=== PATIENT | male | born 1995 | race African-American/Black ===

== ENCOUNTER 2017-09-12 17:46 | Emergency (ER) | payer OTHER ==
[~2017-09-12] VITALS: Ht 188 cm; Wt 113.4 kg
[~2017-09-12 17:46] MED LIST: Ketorolac 30mg Inj IV ONE
[2017-09-12 17:47] VITALS: BP 124/58
[2017-09-12 18:10] LABS: BASOPHILS % (AUTO) 2.7 % (0.0-2.0); EOSINOPHILS % (AUTO) 2.1 % (0.0-3.0); HEMATOCRIT 56.5 % (42.0-52.0); MEAN CORPUSCULAR VOLUME 87 FL (80-99); MONOCYTES % (AUTO) 15.6 % (1.0-10.0); NEUTROPHILS % (AUTO) 37.7 % (45.0-75.0); PLATELET COUNT 397 K/UL (150-450); RED BLOOD COUNT 6.46 M/UL (4.70-6.10); RED CELL DISTRIBUTION WIDTH 11.6 % (11.6-14.8); WHITE BLOOD COUNT 7.9 K/UL (4.8-10.8)
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
[2017-09-12 18:33] LABS: ANION GAP 9 mmol/L (5-15); BLOOD UREA NITROGEN 10 mg/dL (7-18); CALCIUM 8.9 MG/DL (8.5-10.1); CARBON DIOXIDE 28 MMOL/L (21-32); CHLORIDE 106 MMOL/L (98-107); POTASSIUM 3.5 MMOL/L (3.5-5.1); SODIUM 143 MMOL/L (136-145)
[2017-09-12 18:38] LABS: ALANINE AMINOTRANSFERASE 81 U/L (12-78); ALBUMIN 3.4 G/DL (3.4-5.0); ALBUMIN/GLOBULIN RATIO 1.1 (1.0-2.7); ALKALINE PHOSPHATASE 60 U/L (46-116); ASPARTATE AMINO TRANSFERASE 41 U/L (15-37); BILIRUBIN,TOTAL 0.2 MG/DL (0.2-1.0)
[2017-09-12 19:20] VITALS: BP 121/64
[2017-09-12 19:41] LABS: APPEARANCE,URINE CLEAR; BILIRUBIN, URINE NEGATIVE (NEGATIVE); COLOR,URINE PALE YELLOW; GLUCOSE, URINE (UA) NEGATIVE (NEGATIVE); KETONES,URINE NEGATIVE (NEGATIVE); LEUKOCYTE ESTERASE ,URINE NEGATIVE (NEGATIVE); NITRITE,URINE NEGATIVE (NEGATIVE); PH,URINE 7 (4.5-8.0); PROTEIN,URINE NEGATIVE (NEGATIVE); UROBILINOGEN,URINE NORMAL MG/DL (0.0-1.0)
[2017-09-12 21:00] VITALS: BP 118/72
[2017-09-13 00:10] VITALS: BP_SYST 118; BP_SYST 132; BP_DIAS 62; BP_DIAS 72
--- NOTE | 2017-09-13 10:01 | Diagnostic Imaging Report ---
Indication: Trauma Technique: XRAY Chest 1v Comparison: None Findings: Limited exam with low lung volumes. Heart size is not reliably assessed but possibly borderline enlarged. Questionable pulmonary vascular congestion. No focal airspace consolidation. No pleural effusion or pneumothorax. No acute osseous abnormality seen. Impression: Limited exam with low lung volumes. Heart size not reliably assessed but possibly borderline enlarged. Repeat exam with improved inspiratory effort recommended for better evaluation. No definite focal airspace consolidation.
== END 2017-09-13 00:10 | disposition home or self-care (01) ==
LOC: EDBD 17:46 → EMR 18:10
DX: F32.9 Major depressive disorder, single episode, unspecified (principal); R45.851 Suicidal ideations; F10.129 Alcohol abuse with intoxication, unspecified; M54.2 Cervicalgia
CPT/HCPCS: 36415; 71045; 80053; 80307; 80329; 81003; 85025; 85610; 85730; 96361; 96374; 96375; 99284; J1885; J2405